=== PATIENT | male | born 1955 | race Caucasian/White ===

== ENCOUNTER 2020-03-24 04:41 | Inpatient (IN) | payer MEDICAID ==
[2020-03-24] VITALS (11 sets, daily range): BP systolic 96–139; BP diastolic 63–103; BMI 31.9
[~2020-03-24] VITALS: Ht 182.9 cm; Wt 106.6 kg
--- NOTE | ~2020-03-24 | HEMODYNAMI ---
PATIENT:STEVEN RIOS MEDICAL RECORD: [id number] : 59 [facility]# [id number] ADMISSION DATE: 03/24/20 Generatedon:03/24/202011:42 Patient name: STEVEN RIOS Patient #: [id number] SSN: [id number] : 1955 Date of study: 03/24/2020 Page: Of Hemodynamic Procedure Report Patient Data Patient Demographics Procedure consent was obtained First Name: STEVEN Gender: Male Last Name: GABRIEL : 1955 Patient #: [id number] Age: 64 year(s) Race: Unknown SSN: [id number] Additional ID: [id number] Contact details [address]: [address] [place] [address] State: [place] City: [place] Zip code: [address] Past Medical History Allergies Allergen Reaction Date Comments Reported Other allergy 03/24/2020 Admission Admission Data Admission Date: 03/24/2020 Admission Time: 6:16 Arrival Date: 03/24/2020 Arrival Time: 0:00 Admit Source: Other Insurance Payor: None Room #: D.E10 [facility] #: [id number] Height (in.): 71.65 BSA: 2.27 (m2) Height (cm.): 182 BMI: 32 (kg/m2) Weight (lbs.): 233.69 Weight (kg.): 106 Lab Results Lab Result Date: 03/24/2020 Lab Result Time: 0:00 Biochemistry Name Units Result Min Max BUN mg/dl 14 --(--*-)-- 7 18 Creatinine mg/dl 1 --(--*-)-- 0.6 1.3 eGFR ml/min 79.99531 *-(----)-- 90 120 NONAFRICAN CBC Name Units Result Min Max Hemoglobin g/dl 15.9 --(--*-)-- 13.5 17.5 Procedure Procedure Types Cath Procedure Diagnostic Procedure [facility] w/Coronaries Sedation Charges Moderate Sedation 40-54 minutes PCI Procedure Coronary Stent Coronary Stent Initial Hemochron ACT Test Procedure Description Procedure Date Procedure Date: 03/24/2020 Procedure Start Time: 10:50 Procedure End Time: 11:39 Procedure Staff Name Function Benson Blanco MD Performing Physician Angelica Valenzuela RT Monitor Bubba Foster RN Nurse Manasa Ramirez RT Scrub Procedure Data Cath Procedure Fluoroscopy Diagnostic fluoroscopy Total fluoroscopy Time: 7.8 time: 7.8 min min Diagnostic fluoroscopy Total fluoroscopy dose: dose: 1019 mGy 1019 mGy Contrast Material Contrast Material Type Amount (ml) Isovue 300 163 Entry Location Entry Primary Successful Side Size Upsize Upsize Entry Closure Succes sful Closure Location (Fr) 1 (Fr) 2 (Fr) Remarks Device Remarks Femoral Right 5 Fr 6 Fr Exoseal artery Short Estimated blood loss: 10 ml Diagnostic catheters Device Type Used For End Catheter Placement MULTIPACK JL 4.0 5Fr Procedure catheter DIAGNOSTIC JL 5 5Fr Procedure catheter ([id number]) MULTIPACK 3DRC 5Fr Procedure catheter DIAGNOSTIC AR1 MOD 5Fr Procedure catheter ([id number]) MULTIPACK Pigtail 5 Fr Ventriculography catheter Procedure Complications No complications Procedure Medications Medication Administration Route Dosage Oxygen etCO2 Nasal cannula 2 l/min Heparin Flush Bag added to field 2 bags (1000units/500ml NS) 0.9% NaCl I.V. 100 ml/hr Lidocaine 2% added to field 20 Fentanyl I.V. 50 mcg Versed I.V. 1 mg Fentanyl I.V. 50 mcg Versed I.V. 1 mg Heparin Bolus I.V. 5000 units Integrilin (Bolus I.V. 9.5 ml 2mg/ml) Integrilin (Bolus I.V. 0.5 ml 2mg/ml) Lopressor I.V. 5 mg Fentanyl I.V. 50 mcg Fentanyl I.V. 50 mcg Heparin Bolus I.V. 2000 units Plavix P.O. 600 mg Hemodynamics Rest BSA: 2.27 (m2) HGB: 15.9 (g/dl) O2 Consumption: Estimated: 296.01 (ml/min) O2 Co nsumption indexed: Estimated:130.4 (ml/min/m) Heart Rate: 105 (bpm) Pressure Samples Time Site Value (mmHg) Purpose Heart Use Rate(bpm) 11:10 LV 126/14,20 Snapshot 107 11:10 AO 136/36(81) Pullback 110 11:10 LV 76/76,17 Pullback 110 Gradients Valve Time Site 1 Site 2 Mean SEP/DFP Peak To Heart Use (mmHg) (sec/min) Peak Rate (mmHg) (bpm) Aortic 11:10 LV AO 0 1 0 110 76/76,17 136/36(81) Calculations Valve P-P Mean Valve Index Valve Source Name Gradient Area Flow (cm2) Aortic 0 0 0 0 Snapshots Pre Cath Intra NCS Post Cath Vital Signs Time Heart Resp SPO2 etCO2 NIBP (mmHg) Rhythm Pain Sedation Rate (ipm) (%) (mmHg) Status Level (bpm) 10:40:52 105 16 96 2.2 138/98(106) NSR (Missing) 10(A) 10:45:22 106 19 92 40.9 136/90(109) NSR (Missing) 10(A) 10:49:51 104 19 94 9.8 132/89(108) NSR (Missing) 10(A) 10:54:15 106 20 92 22.7 133/92(108) NSR (Missing) 9(A) 10:58:39 103 17 96 32.6 132/90(98) NSR (Missing) 9(A) 11:03:03 106 16 95 27.3 126/82(97) NSR (Missing) 9(A) 11:07:29 105 28 95 26.5 117/80(99) NSR (Missing) 9(A) 11:11:50 108 19 95 36.4 132/87(105) NSR (Missing) 9(A) 11:16:14 105 20 96 30.3 137/92(107) NSR (Missing) 9(A) 11:20:42 100 19 96 32.6 129/85(94) NSR (Missing) 9(A) 11:25:08 91 20 94 34.1 122/82(94) NSR (Missing) 9(A) 11:29:30 90 20 96 34.9 126/85(100) NSR (Missing) 9(A) 11:33:57 96 20 94 30.3 130/72(111) NSR (Missing) 9(A) 11:38:23 94 18 95 27.3 123/87(98) NSR (Missing) 10(A) Medications Time Medication Route Dose Verified Delivered Reason Notes Effectiveness by by 10:42:01 Oxygen etCO2 2 Benson Mac Per physician Nasal l/min St Steven Foster RN cannula 10:42:09 Heparin Flush added 2 Benson Bubba used for Bag to bags [facility] Steven Foster RN procedure (1000units/500ml field BLACK NS) 10:42:21 0.9% NaCl I.V. 100 Benson Mac Per physician ml/hr [facility] Steven Foster RN, MD 10:42:29 Lidocaine 2% added 20ml Benson Mac for local to vial St Steven Foster RN anesthetic field BLACK 10:48:46 Fentanyl I.V. 50 Benson Bubba for sedation [facility] Steven Foster RN, MD 10:48:53 Versed I.V. 1 mg Benson Gandhiy for sedation [facility] Steven Foster RN, MD 10:50:45 Fentanyl I.V. 50 Benson Bubba for sedation [facility] Steven Foster RN, MD 10:50:51 Versed I.V. 1 mg Benson Mac for sedation [facility] Steven Foster RN, MD 11:10:29 Heparin Bolus I.V. [address] units [facility] Steven Foster RN anticoagulation 11:16:27 Integrilin I.V. 9.5 Benson Gandhiy for (Bolus 2mg/ml) ml [facility] Steven Foster RN anticoagulation 11:16:34 Integrilin I.V. 0.5 Benson Gandhiy for (Bolus 2mg/ml) ml [facility] Steven Foster RN anticoagulation 11:18:26 Lopressor I.V. 5 mg Benson Mac Per physician [facility] Steven Foster RN 11:18:54 Fentanyl I.V. 50 Benson Gandhiy for sedation [facility] Steven Foster RN 11:22:55 Fentanyl I.V. 50 Benson Gandhiy for sedation [facility] Steven Foster RN 11:30:29 Heparin Bolus I.V. [address] Mac for units [facility] Steven Foster RN anticoagulation 11:35:36 Plavix P.O. 600 Benson Gandhiy for mg [facility] Steven Foster RN antiplatelet therapy Procedure Log Time Note 10:14:08 Arrival Date: 03/24/2020 12:00:00 AM 10:14:22 Admit Source: Other 10:14:24 Insurance Payor : None 10:14:48 Patient Height : 71.65 inches 10:14:52 Patient Weight : 233.69 lbs 10:15:28 Lab Result : Hemoglobin 15.9 g/dl 10:15:28 Lab Result : eGFR NONAFRICAN 79.65143 ml/min 10:15:28 Lab Result : BUN 14 mg/dl 10:15:28 Lab Result : Creatinine 1 mg/dl 10:15:46 Diagnostic Cath Status : Elective 10:19:45 Procedure Status Urgent Heart Cath (IP). 10:19:57 Bubba Foster RN sent for patient. Start room use. 10:19:58 Time tracking: Regular hours (M-F 7:00 - 5:00) 10:20:06 Plan of Care:Hemodynamics will remain stable., Cardiac rhythm will remain stable., Comfort level will be maintained., Respiratory function will remain adequate., Patient/ family verbilizes understanding of procedure., Procedure tolerated without complication., Recovers from procedure without complications.. 10:20:28 Patient received from ED to CCL 3 Alert and oriented. Tansferred to table in Supine position. 10:30:06 H&P Date Dictated: 03/24/2020 Within 30 days and on chart., H&P Addendum completed by physician on day of procedure. (MUST COMPLETE FOR ALL OUTPATIENTS). 10:30:09 Pre-procedure instructions explained to patient. 10:30:40 Signed procedure consent form obtained from patient. 10:30:42 Warm blankets applied, and rachel hugger turned on for patient comfort. 10:30:45 Correct patient and procedure confirmed by team. 10:30:47 ECG and BP/O2 sat monitors applied to patient. 10:30:49 Pre-op teaching completed and patient verbalized understanding. 10:39:22 Vital chart was started 10:42:01 Oxygen 2 l/min etCO2 Nasal cannula was administered by Bubba Foster RN; Per physician; Verbal order read back and verified. 10:42:09 Heparin Flush Bag (1000units/500ml NS) 2 bags added to field was administered by Bubba Foster RN; used for procedure; Verbal order read back and verified. 10:42:21 0.9% NaCl 100 ml/hr I.V. was administered by Bubab Foster RN; Per physician; Verbal order read back and verified. 10:42:29 Lidocaine 2% 20ml vial added to field was administered by Bubba Foster RN; for local anesthetic; Verbal order read back and verified. 10:44:11 Baseline sample Acquired. 10:44:12 Full Disclosure recording started 10:44:19 Family in patients room. 10:44:21 Patient NPO since Midnight. 10:44:33 Patient allergic to Other allergy 10:44:36 Is the patient allergic to Iodine/contrast media? No. 10:44:38 Was the patient premedicated? Yes 10:44:40 Is patient on blood thinner?No 10:44:42 Patient diabetic? Yes. 10:45:23 Previous problem with sedation/anesthesia? No ? 10:45:25 Snore? Yes 10:45:27 Sleep apnea? No 10:45:33 Dentures? No ? 10:45:37 Patient pain scale 2/10 ?. 10:45:45 IV patent on arrival in right forearm with 0.9% NaCl at KVO. 10:46:02 Lab results completed and on chart. 10:46:57 Stress Test: no; N/A ? 10:47:05 Right groin area was prepped with chlora-prep and draped in sterile fashion 10:47:06 Alarms reviewed by R. N. 10:47:07 Sharps counted by scrub and verified by R.N. 10:47:09 Physician paged 10:48:42 Physician arrived 10:48:43 --------ALL STOP TIME OUT------ 10:48:44 Final Timeout: patient, procedure, and site verified with staff and physician. All members of the team are in agreement. 10:48:46 Fentanyl 50 mcg I.V. was administered by Bubba Foster RN; for sedation; Verbal order read back and verified. 10:48:46 Right groin site verified by team. 10:48:51 Fire Safety Assessment: A--An alcohol-based skin anteseptic being used preoperatively., C--Open oxygen or nitrous oxide is being used., D--An ESU, laser, or fiber-optic light is being used. 10:48:53 Versed 1 mg I.V. was administered by Bubba Foster RN; for sedation; Verbal order read back and verified. 10:48:56 Physical assessment completed. ASA score P 2 - A patient with mild systemic disease as per Benson Blanco MD. 10:49:42 2) 60-89 Mildly reduced kidney function, and other findings (as for stage 1) point to kidney disease. 10:49:49 Maximum allowable contrast dose (3.7 X eGFR X 0.75)222 ml. 10:50:02 Sedation plan: IV Moderate Sedation Medication:Versed, Fentanyl 10:50:21 Procedure started. 10:50:31 Use device set Femoral Dx 10:50:32 ACIST Syringe (88601) opened to sterile field. 10:50:32 Bag Decanter (2002S) opened to sterile field. 10:50:33 Medline Cath Pack ([id number]) opened to sterile field. 10:50:34 ACIST Hand Control (68190) opened to sterile field. 10:50:34 ACIST Manifold (18595) opened to sterile field. 10:50:38 DIAGNOSTIC Multipack 5Fr catheter set (SA3238) opened to sterile field. 10:50:39 Tegaderm 4 x 4 (1626W) opened to sterile field. 10:50:41 SHEATH 5FR [place] (IAU578) opened to sterile field. 10:50:41 EMERALD Guide Wire (746-137) opened to sterile field. 10:50:45 Fentanyl 50 mcg I.V. was administered by Bubba Foster RN; for sedation; Verbal order read back and verified. 10:50:47 Local anesthetic to right femoral artery with Lidocaine 2% by Benson Blanco MD.INITIAL ACCESS ONLY 10:50:51 Versed 1 mg I.V. was administered by Bubba Foster RN; for sedation; Verbal order read back and verified. 10:52:11 A 5 Fr sheath was inserted into the Right Femoral artery 10:52:22 A MULTIPACK JL 4.0 5Fr catheter was advanced over the wire and used for Procedure. 10:52:43 Catheter removed. 10:52:57 A DIAGNOSTIC JL 5 5Fr catheter ([id number]) was advanced over the wire and used for Procedure. 10:53:19 LCA angiography performed. 10:55:37 Catheter removed. 10:55:58 A MULTIPACK 3DRC 5Fr catheter was advanced over the wire and used for Procedure. 10:56:50 RCA angiography performed. 10:57:14 Catheter removed. 10:57:46 A DIAGNOSTIC AR1 MOD 5Fr catheter ([id number]) was advanced over the wire and used for Procedure. 10:59:22 RCA angiography performed. 10:59:23 Catheter removed. 10:59:32 A MULTIPACK Pigtail 5 Fr catheter was advanced over the wire and used for Ventriculography. 10:59:36 LV gram done using ESTRELLA 11:00:48 Zero performed for pressure channel P1 11:00:57 Zero performed for pressure channel P1 11:01:08 Zero performed for pressure channel P1 11:01:29 Zero performed for pressure channel P1 11:02:03 Zero performed for pressure channel P1 11:02:41 Zero performed for pressure channel P1 11:05:33 Baseline sample Acquired. 11:05:36 Baseline sample Acquired. 11:05:37 Zero performed for pressure channel P1 11:05:37 Zero performed for pressure channel P2 11:05:37 Zero performed for pressure channel P3 11:05:43 Zero performed for pressure channel P2 11:05:43 Zero performed for pressure channel P1 11:05:43 Zero performed for pressure channel P3 11:07:04 Zero performed for pressure channel P1 11:07:08 Zero performed for pressure channel P1 11:07:15 Zero performed for pressure channel P1 11:07:26 Zero performed for pressure channel P1 11:07:44 Zero performed for pressure channel P1 11:07:54 Zero performed for pressure channel P1 11:08:49 Baseline sample Acquired. 11:08:58 Zero performed for pressure channel P1 11:09:06 Zero performed for pressure channel P1 11:09:43 Zero performed for pressure channel P1 11:10:29 Heparin Bolus 5000 units I.V. was administered by Bubba Foster RN; for anticoagulation; Verbal order read back and verified. 11:11:07 EF : 20 % 11::22 Zero performed for pressure channel P1 11:11:28 Zero performed for pressure channel P1 11:13:22 Catheter removed. 11:14:23 Pre PCI Site: [place] pCirc has 100% stenosis. 11:15:06 Sheath upsized to a 6 Fr Short. 11:15:43 SHEATH 6FR [place] (IGN151) opened to sterile field. 11:15:45 GUIDE 6FR EBU 3.75 catheter ([id number]) opened to sterile field. 11:15:46 INFLATOR [place] BasixCompak (BG2754) opened to sterile field. 11:15:52 BMW 300cm [place] 2 J wire ([id number]) opened to sterile field. 11:16:10 6 Fr EBU3.75 guide catheter was inserted over the wire 11:16:27 Integrilin (Bolus 2mg/ml) 9.5 ml I.V. was administered by Bubba Foster RN; for anticoagulation; Verbal order read back and verified. 11:16:34 Integrilin (Bolus 2mg/ml) 0.5 ml I.V. was administered by Bubba Foster RN; for anticoagulation; Verbal order read back and verified. 11:18:17 Catheter removed. unable to cannulate vessel. 11:18:26 Lopressor 5 mg I.V. was administered by Bubba Foster RN; Per physician; Verbal order read back and verified. 11:18:27 GUIDE 6FR XBLAD 4.0 catheter ([id number]) opened to sterile field. 11:18:51 6 Fr XBLAD4 guide catheter was inserted over the wire 11:18:54 Fentanyl 50 mcg I.V. was administered by Bubba Foster RN; for sedation; Verbal order read back and verified. 11:20:31 Catheter removed. unable to cannulate vessel. 11:21:03 GUIDE 6FR EBU 5.0 catheter ([id number]) opened to sterile field. 11:22:30 BMW wire advanced. 11:22:55 Fentanyl 50 mcg I.V. was administered by Bubba Foster RN; for sedation; Verbal order read back and verified. 11:27:24 Inflate balloon Inflation number: 1 A EUPHORA 2.5 x 15 Balloon ([id number]) was prepped and advanced across the Mid CX 100, then inflated to 0 AURA for 0:04 (min:sec) 0. 11:28:46 Balloon removed over the wire. 11:30:29 Heparin Bolus 2000 units I.V. was administered by Bubba Foster RN; for anticoagulation; Verbal order read back and verified. 11:30:58 Place stent Inflation Number: 2 A INTEGRITY RX 3.0 x 18 stent ([id number]) was prepped and advanced across the Mid CX 100. The stent was deployed at 14 AURA for 0:25 (min:sec) . 11:31:16 Inflation number: 3 The stent balloon was then re-inflated across the Mid CX to 6 AURA for 0:12 (min:sec) . 11:31:36 Inflation number: 4 The stent balloon was then re-inflated across the Mid CX to 6 AURA for 0:13 (min:sec) . 11:32:15 EXOSEAL 6Fr (EX600) opened to sterile field. 11:32:32 Wire removed. 11:32:33 Guide catheter removed. 11:32:51 Sheath removed intact; hemostasis achieved with Exoseal to the Right Femoral artery. 11:32:54 Procedure ended.(Physican Out) 11:34:06 Fluoroscopy time 07.80 minutes. 11:34:19 Flurop Dose total: 1019 11:34:19 Fluoroscopy dose: 1019 mGy 11:34:30 Dose Area Product 6641 mGy/cm. 11:34:34 Contrast amount:Isovue 300 163ml. 11:34:36 Maximum allowable dose exceeded? No. 11:34:37 Sharps counted by scrub and verified by R.N. 11:34:38 Insertion/operative site no bleeding no hematoma. 11:34:42 Post-op/insertion site Right Femoral artery dressed using a 4 x 4 and Tegaderm. 11:35:25 Post-op/insertion site Right Femoral artery dressed using a 4 x 4 and Tegaderm. 11:35:29 Post right femoral artery:stable 11:35:36 Plavix 600 mg P.O. was administered by Bubba Foster RN; for antiplatelet therapy; Verbal order read back and verified. 11:35:36 Post Procedure Pulses reassessed and unchanged 11:35:46 Post-procedure physical assessment completed. ASA score P 3 - A patient with severe systemic disease as per Benson Blanco MD. 11:35:52 Post procedure rhythm: sinus rhythm 11:35:56 Estimated blood loss: 10 ml 11:35:58 Post procedure instruction explained to patient.Patient verbalizes understanding. 11:37:27 Procedure type changed to Cath procedure, Diagnostic procedure, LHC, LHC w/Coronaries, Sedation Charges, Moderate Sedation 40-54 minutes, PCI procedure, Coronary Stent, Coronary Stent Initial, Hemochron ACT Test 11:37:29 Procedure and supply charges have been captured, reviewed, submitted and are correct. 11:38:25 ACT drawn and resulted at 250 seconds. (normal therapeutic range 180-240 seconds). 11:38:38 Procedure Complication : No complications 11:38:42 Vital chart was stopped 11:38:47 [facility] Findings: MVD- PCI performed (see procedure note) 11:39:02 Operative report dictated upon procedure completion. 11:39:06 See physician's report for complete and final results. 11:39:22 Report given to Pre/Post Procedure Room. 11:39:25 Patient transfered to Pre/Post Procedure Room with Stretcher. 11:39:27 Procedure ended. 11:39:27 Full Disclosure recording stopped 11:39:33 End room use (Document Last) 11:40:02 End room use (Document Last) 11:41:27 End room use (Document Last) Intervention Summary Intervention Notes Time ActionType Lesion and Equipment Action# Pressure Duration Attributes Used 11:27:24 Inflate Mid CX EUPHORA 2.5 1 0 00:04 balloon x 15 Balloon ([id number]) 11:30:58 Place stent Mid CX INTEGRITY RX 2 14 00:25 3.0 x 18 stent ([id number]) 11:31:16 Reinflate Mid CX INTEGRITY RX 3 6 00:12 stent 3.0 x 18 balloon stent ([id number]) 11:31:36 Reinflate Mid CX INTEGRITY RX 4 6 00:13 stent 3.0 x 18 balloon stent ([id number]) Device Usage Item Name Manufacture Quantity Catalog Hospital Part Current Minimal Lot# / Number Charge Number Stock Stock Serial# Code ACIST Acist 1 60413 228134 870387 166664 20 Syringe Medical (34429) Systems Inc Bag Decanter Microtek 1 402364 53119 693071 5 () Medical Inc. Medline Cath Medline 1 [id number] 381109 43328 826350 5 Pack ([id number]) ACIST Hand Acist 1 41821 367335 282110 095788 5 Control Medical (73260) Systems Inc ACIST Acist 1 85383 906440 847727 245765 5 Manifold Medical (77705) Systems Inc DIAGNOSTIC Cardinal 1 WP2744 054406 38524 238957 30 ONEPLE 5Fr catheter set (JY6276) Tegaderm 4 x 3M 1 1626W 377432 244177 960948 5 4 (1626W) SHEATH 5FR Terumo 1 TYW692 990717 952492 593758 5 [place] (IKG930) EMERALD Cardinal 1 502-455 259279 671035 406670 5 Guide Wire Health (502-455) MULTIPACK JL Cardinal 1 850653 5 4.0 5Fr Health catheter DIAGNOSTIC Cardinal 1 [id number] 898951 844357 602356 5 JL 5 5Fr Health catheter (260247B) MULTIPACK Cardinal 1 648015 5 3DRC 5Fr Health catheter DIAGNOSTIC Cardinal 1 359813E 319736 641132 799400 15 AR1 MOD 5Fr Health catheter (277713R) MULTIPACK Cardinal 1 947466 5 Pigtail 5 Fr Health catheter SHEATH 6FR Terumo 1 VGD086 333436 609624 958439 40 [place] (EQB397) GUIDE 6FR Medtronic 1 [id number] 054823 75366 023600 1 EBU 3.75 catheter ([id number]) INFLATOR [facility] 1 NQ9218 805054 442012 330162 15 [facility] BasixCompak (FF0822) BMW 300cm [place] 1 [id number] 959162 660140 675071 5 [place] 2 Vascular J wire ([id number]) GUIDE 6FR Cardinal 1 [id number] 066705 688727 304688 3 XBLAD 4.0 Health catheter ([id number]) GUIDE 6FR Medtronic 1 [id number] 149686 13033 720920 0 EBU 5.0 catheter ([id number]) EUPHORA 2.5 Medtronic 1 [id number] 512717 215227 851337 5 x 15 Balloon ([id number]) INTEGRITY RX Medtronic 1 [id number] 226409 469043 045289 5 [id number] 3.0 x 18 stent ([id number]) EXOSEAL 6Fr Cardinal 1 EX600 142068 160442 537156 10 (EX600) Health Signature Audit Julian Stage Time Signature Unsigned Intra-Procedure 03/24/2020 Angelica Valenzuela 11:40:02 AM RT(R) Intra-Procedure 03/24/2020 Bubba Foster RN 11:41:27 AM Intra-Procedure 03/24/2020 Benson Blanco MD 11:42:[address] [address]
--- NOTE | ~2020-03-24 | HEMODYNAMI ---
PATIENT:STEVEN RIOS MEDICAL RECORD: [id number] : 59 [facility] [id number] ADMISSION DATE: 03/24/20 Generatedon:03/27/202011:58 Patient name: STEVEN RIOS Patient #: [id number] SSN: [id number] : 1955 Date of study: 03/27/2020 Page: Of Hemodynamic Procedure Report Patient Data Patient Demographics Procedure consent was obtained First Name: STEVEN Gender: Male Last Name: GABRIEL : 1955 Patient #: [id number] Age: 64 year(s) Race: SSN: [id number] Additional ID: [id number] Contact details Address: [address] [place] [address] State: [place] City: [place] Zip code: [address] Past Medical History Allergies Allergen Reaction Date Comments Reported Other allergy 03/24/2020 Admission Admission Data Admission Date: 03/24/2020 Admission Time: 6:16 Arrival Date: 03/24/2020 Arrival Time: 0:00 Admit Source: Other Insurance Payor: None Room #: D.2113 [facility] #: [id number] Height (in.): 71.65 BSA: 2.27 (m2) Height (cm.): 182 BMI: 32 (kg/m2) Weight (lbs.): 233.69 Weight (kg.): 106 Lab Results Lab Result Date: 03/24/2020 Lab Result Time: 0:00 Biochemistry Name Units Result Min Max BUN mg/dl 14 --(--*-)-- 7 18 Creatinine mg/dl 1 --(--*-)-- 0.6 1.3 eGFR ml/min 79.92327 *-(----)-- 90 120 NONAFRICAN CBC Name Units Result Min Max Hemoglobin g/dl 15.9 --(--*-)-- 13.5 17.5 Procedure Procedure Types Cath Procedure Diagnostic Procedure [facility] w/Coronaries Sedation Charges Moderate Sedation 40-54 minutes PCI Procedure Hemochron ACT Test PTCA PTCA Initial Procedure Description Procedure Date Procedure Date: 03/27/2020 Procedure Start Time: 11:12 Procedure End Time: 11:54 Procedure Staff Name Function Benson Blanco MD Performing Physician Magaly Guardado RT Monitor Kinjal Matt, RN Nurse Alivia Hamlin RT Scrub Procedure Data Cath Procedure Fluoroscopy Diagnostic fluoroscopy Total fluoroscopy Time: time: 15.2 min 15.2 min Diagnostic fluoroscopy Total fluoroscopy dose: dose: 2470 mGy 2470 mGy Contrast Material Contrast Material Type Amount (ml) Isovue 300 113 Entry Location Entry Primary Successful Side Size Upsize Upsize Entry Closure Succes sful Closure Location (Fr) 1 (Fr) 2 (Fr) Remarks Device Remarks Femoral Left 6 Fr Exoseal artery Short Estimated blood loss: 5 ml Diagnostic catheters Device Type Used For End Catheter Placement DIAGNOSTIC JL 5 5Fr Left Coronary catheter ([id number]) Angiography Procedure Complications No complications Procedure Medications Medication Administration Route Dosage Oxygen etCO2 Nasal cannula 2 l/min Heparin Flush Bag added to field 2 bags (1000units/500ml NS) Lidocaine 2% added to field 20 0.9% NaCl I.V. 100 ml/hr Fentanyl I.V. 50 mcg Versed I.V. 1 mg Fentanyl I.V. 50 mcg Versed I.V. 1 mg Heparin Drip (29670ifcpl/250 D5W) Heparin Bolus I.V. 3000 units Versed I.V. 1 mg Versed I.V. 1 mg Fentanyl I.V. 50 mcg Hemodynamics Rest BSA: 2.27 (m2) HGB: 15.9 (g/dl) O2 Consumption: Estimated: 268.52 (ml/min) O2 Co nsumption indexed: Estimated:118.29 (ml/min/m) Heart Rate: 73 (bpm) Snapshots Pre Cath Intra NCS Post Cath Vital Signs Time Heart Resp SPO2 etCO2 NIBP (mmHg) Rhythm Pain Sedation Rate (ipm) (%) (mmHg) Status Level (bpm) 11:06:19 75 26 94 0 85/62(69) NSR 0 (11) 10(A) , No pain 11:10:23 78 17 92 9.7 85/63(71) NSR 0 (11) 10(A) , No pain 11:14:24 77 18 94 25.5 85/66(72) NSR 0 (11) 9(A) , No pain 11:18:28 76 15 86 25.5 84/60(68) NSR 0 (11) 9(A) , No pain 11:22:30 80 15 92 23.2 82/62(73) NSR 0 (11) 9(A) , No pain 11:26:34 80 16 92 25.5 87/55(68) NSR 0 (11) 9(A) , No pain 11:30:35 85 18 92 24.8 91/66(76) NSR 0 (11) 9(A) , No pain 11:34:35 84 18 94 25.5 100/74(87) NSR 0 (11) 9(A) , No pain 11:38:36 83 17 94 24 106/83(91) NSR 0 (11) 9(A) , No pain 11:42:38 86 22 94 18.8 110/86(92) NSR 0 (11) 9(A) , No pain 11:46:44 86 16 92 19.5 111/83(96) NSR 0 (11) 9(A) , No pain 11:50:50 87 19 95 23.2 112/82(100) NSR 0 (11) 9(A) , No pain 11:54:53 86 17 95 24 118/88(96) NSR 0 (11) 9(A) , No pain Medications Time Medication Route Dose Verified Delivered Reason Notes E ffectiveness by by 11:01:48 Oxygen etCO2 2 Kinjal Kinjal for low 02 Nasal l/min Shaka Matt sats cannula RN RN 11:01:56 Heparin Flush added 2 Kinjal Kinjal used for Bag to bags Shaka Matt procedure (1000units/500ml field RN RN NS) 11:02:04 Lidocaine 2% added 20ml Kinjal Benson for local to vial [facility] Steven Matt anesthetic field ZIA BLACK 11:02:18 0.9% NaCl I.V. 100 Kinjal Kinjal Per ml/hr Shaka Matt, physician RN RN 11:08:59 Fentanyl I.V. 50 Kinjal Kinjal for mcg Shaka Matt sedation RN RN 11:09:04 Versed I.V. 1 mg Kinjal Kinjal for Matt, Matt, sedation RN RN 11:09:31 Heparin Drip Kinjal Kinjal Heparin ([id number]/250 Matt, Matt, gtt was D5W) RN RN stopped on floor at 10:50am 11:12:50 Fentanyl I.V. 50 Kinjal Kinjal for mcg Matt, Matt, sedation RN RN 11:12:53 Versed I.V. 1 mg Kinjal Kinjal for Matt, Matt, sedation RN RN 11:36:04 Heparin Bolus I.V. 3000 Kinjal Kinjal verified units Matt, Matt, w RN RN bharath,rn 11:37:59 Versed I.V. 1 mg Kinjal Kinjal for Matt, Matt, sedation RN RN 11:40:22 Versed I.V. 1 mg Kinjal Kinjal for Matt, Matt, sedation RN RN 11:41:44 Fentanyl I.V. 50 Kinjal Kinjal for mcg Matt, Matt, sedation RN driver license agent Log Time Note 10:34:44 Informed consent obtained and on chart 10:34:55 Diagnostic Cath Status : Elective 10:35:05 Patient Weight : 233.69 lbs 10:35:05 Patient Height : 71.65 inches 10:41:31 Procedure Status Urgent Heart Cath (IP). 10:41:33 Kinjal Matt RN sent for patient. Start room use. 10:41:34 Time tracking: Regular hours (M-F 7:00 - 5:00) 10:41:38 Plan of Care:Hemodynamics will remain stable., Cardiac rhythm will remain stable., Comfort level will be maintained., Respiratory function will remain adequate., Patient/ family verbilizes understanding of procedure., Procedure tolerated without complication., Recovers from procedure without complications.. 10:54:47 Patient received from Med II to CCL 2 Alert and oriented. Tansferred to table in Supine position. 10:54:47 Warm blankets applied, and rachel hugger turned on for patient comfort. 10:54:48 Correct patient and procedure confirmed by team. 10:54:48 ECG and BP/O2 sat monitors applied to patient. 10:54:56 Pre-procedure instructions explained to patient. 10:54:56 Pre-op teaching completed and patient verbalized understanding. 10:54:58 Family in waiting room. 10:54:59 Patient NPO since Midnight. 11:01:48 Oxygen 2 l/min etCO2 Nasal cannula was administered by Kinjal Matt RN; for low 02 sats; Verbal order read back and verified. 11:01:56 Heparin Flush Bag (1000units/500ml NS) 2 bags added to field was administered by Kinjal Matt RN; used for procedure; Verbal order read back and verified. 11:02:04 Lidocaine 2% 20ml vial added to field was administered by Benson Blanco MD; for local anesthetic; Verbal order read back and verified. 11:02:18 0.9% NaCl 100 ml/hr I.V. was administered by Kinjal Matt RN; Per physician; Verbal order read back and verified. 11:05:11 Vital chart was started 11:05:12 Baseline sample Acquired. 11:05:22 Rhythm: sinus rhythm 11:05:24 Full Disclosure recording started 11:05:28 H&P Date Dictated: 03/27/2020 Within 30 days and on chart., H&P Addendum completed by physician on day of procedure. (MUST COMPLETE FOR ALL OUTPATIENTS). 11:05:31 Is the patient allergic to Iodine/contrast media? No. 11:05:32 Was the patient premedicated? Yes 11:05:34 Is patient on blood thinner?Yes 11:05:39 ACC The patient was administered the following blood thiners within the last 24 hours: ACCPlavix, ACCHeparin 11:05:41 Patient diabetic? Yes. 11:05:44 Previous problem with sedation/anesthesia? No ? 11:05:46 Snore? Yes 11:06:13 Sleep apnea? No 11:06:14 Deviated septum? No 11:06:14 Opens mouth fully? Yes 11:06:15 Sticks out tongue? Yes 11:06:22 Airway obstruction? No ? 11:06:25 Dentures? No ? 11:06:28 Pre procedure: right dorsailis pedis pulse 2+ Normal; easily identifiable; not easily obliterated 11:06:30 Pre procedure: left dorsailis pedis pulse 2+ Normal; easily identifiable; not easily obliterated 11:06:32 Patient pain scale 0/10 ?. 11:06:37 IV patent on arrival in right forearm with 0.9% NaCl at [facility]. 11:06:39 Lab results completed and on chart. 11:06:51 Left groin area was prepped with chlora-prep and draped in sterile fashion 11:06:52 Alarms reviewed by RMarkie N. 11:06:52 Sharps counted by scrub and verified by R.N. 11:06:54 Physician arrived 11:06:55 --------ALL STOP TIME OUT------ 11:06:56 Final Timeout: patient, procedure, and site verified with staff and physician. All members of the team are in agreement. 11:06:58 Left groin site verified by team. 11:07:01 Fire Safety Assessment: A--An alcohol-based skin anteseptic being used preoperatively., C--Open oxygen or nitrous oxide is being used., D--An ESU, laser, or fiber-optic light is being used. 11:07:06 Physical assessment completed. ASA score P 2 - A patient with mild systemic disease as per Benson Blanco MD. 11:08:59 Fentanyl 50 mcg I.V. was administered by Kinjal Matt RN; for sedation; Verbal order read back and verified. 11:09:04 Versed 1 mg I.V. was administered by Kinjal Matt RN; for sedation; Verbal order read back and verified. 11:09:31 Heparin Drip (46578vgqli/250 D5W) was administered by Kinjal Matt RN; ; Heparin gtt was stopped on floor at 10:50am Verbal order read back and verified. 11:11:18 2) 60-89 Mildly reduced kidney function, and other findings (as for stage 1) point to kidney disease. 11:11:44 Maximum allowable contrast dose (3.7 X eGFR X 0.75)180 ml. 11:11:47 Sedation plan: IV Moderate Sedation Medication:Versed, Fentanyl 11:11:51 Use device set Femoral Dx 11:11:53 ACIST Syringe (83048) opened to sterile field. 11:11:53 Bag Decanter (2002) opened to sterile field. 11:11:54 Medline Cath Pack ([id number]) opened to sterile field. 11:11:55 ACIST Hand Control (77395) opened to sterile field. 11:11:56 ACIST Manifold (04946) opened to sterile field. 11:11:57 EMERALD Guide Wire (502-768) opened to sterile field. 11:12:04 SHEATH 6FR [place] (VXO296) opened to sterile field. 11:12:15 Procedure started. 11:12:22 Local anesthetic to left femerol artery with Lidocaine 2% by Benson Blanco MD.INITIAL ACCESS ONLY 11:12:34 A 6 Fr Short sheath was inserted into the Left Femoral artery 11:12:50 Fentanyl 50 mcg I.V. was administered by Kinjal Matt RN; for sedation; Verbal order read back and verified. 11:12:53 Versed 1 mg I.V. was administered by Kinjal Matt RN; for sedation; Verbal order read back and verified. 11:12:54 INFLATOR Merit BasixCompak (BN0159) opened to sterile field. 11:13:00 BMW 300cm [place] 2 J wire ([id number]) opened to sterile field. 11:14:09 GUIDE 6FR AR 2.0 catheter (YJ1VK59) opened to sterile field. 11:14:42 6 Fr ar 2 guide catheter was inserted over the wire 11:16:04 bmw wire advanced. 11:18:45 Wire advanced across lesion. 11:19:09 ACC Pre-intervention MEI Flow is 1. 11:22:13 Inflate balloon Inflation number: 1 A EUPHORA 3.0 x 15 Balloon ([id number]) was prepped and advanced across the Mid RCA 90, then inflated to 14 AURA for 0:10 (min:sec) 0. 11:22:48 Inflation number: 2 The EUPHORA 3.0 x 15 Balloon ([id number]) was reinflated across the Mid RCA 0, to 14 AURA for 0:30 (min:sec) . 11:23:27 Balloon removed over the wire. 11:34:38 GUIDE 6FR AR 1.0 SH catheter ([id number]) opened to sterile field. 11:35:01 Wire removed. 11:35:02 Guide catheter removed. 11:35:10 6 Fr ar 1 sh guide catheter was inserted over the wire 11:35:19 bmw wire advanced. 11:36:04 Heparin Bolus 3000 units I.V. was administered by Kinjal Matt RN; ; verified w zia sinha Verbal order read back and verified. 11:37:59 Versed 1 mg I.V. was administered by Kinjal Matt RN; for sedation; Verbal order read back and verified. 11:38:00 The INTEGRITY RX 3.5 x 18 stent ([id number]) was advanced then removed because of failure to cross lesion 11:40:22 Versed 1 mg I.V. was administered by Kinjal Matt RN; for sedation; Verbal order read back and verified. 11:41:44 Fentanyl 50 mcg I.V. was administered by Kinjal Matt RN; for sedation; Verbal order read back and verified. 11:42:29 BMW 300cm [place] 2 J wire ([id number]) opened to sterile field. 11:42:47 Wire removed. 11:43:01 bmw wire advanced. 11:45:58 The EMERGE OTW 3.0 x 20 balloon ([id number]) was advanced and then removed because in body, not inflated 11:47:41 Wire removed. 11:47:45 Guide catheter removed. 11:47:49 A DIAGNOSTIC JL 5 5Fr catheter ([id number]) was advanced over the wire and used for Left Coronary Angiography. 11:48:20 LCA angiography performed. 11:48:22 Injector settings: Ml/sec: 3, Volume: 6, 11:48:27 Catheter removed. 11:48:39 EXOSEAL 6Fr (EX600) opened to sterile field. 11:50:23 Sheath removed intact; hemostasis achieved with Exoseal to the Left Femoral artery. 11:50:25 Procedure ended.(Physican Out) 11:50:46 Fluoroscopy time 15.20 minutes. 11:50:51 Fluoroscopy dose: 2470 mGy 11:50:51 Flurop Dose total: 2470 11:50:57 Dose Area Product 351504 mGy/cm. 11:52:03 Contrast amount:Isovue 300 113ml. 11:52:58 Maximum allowable dose exceeded? No. 11:52:59 Sharps counted by scrub and verified by R.N. 11:53:01 Insertion/operative site no bleeding no hematoma. 11:53:04 Post-op/insertion site Left Femoral artery dressed using a 4 x 4 and Tegaderm. 11:53:05 Post Procedure Pulses reassessed and unchanged 11:53:08 Post procedure rhythm: unchanged. 11:53:12 Estimated blood loss: 5 ml 11:53:13 Post procedure instruction explained to patient.Patient verbalizes understanding. 11:53:13 Patient needs reinforcement of post procedure teaching. 11:54:15 Procedure type changed to Cath procedure, Diagnostic procedure, LHC, [facility] w/Coronaries, Sedation Charges, Moderate Sedation 40-54 minutes, PCI procedure, Hemochron ACT Test, PTCA, PTCA Initial 11:54:16 Procedure and supply charges have been captured, reviewed, submitted and are correct. 11:54:18 ACT drawn and resulted at 168 seconds. (normal therapeutic range 180-240 seconds). 11:54:21 Procedure Complication : No complications 11:54:27 Vital chart was stopped 11:54:29 [facility] Findings: MVD- PCI performed (see procedure note) 11:54:30 Operative report dictated upon procedure completion. 11:54:31 See physician's report for complete and final results. 11:54:34 Report given to [facility]. 11:54:36 Patient transfered to [facility] with Stretcher. 11:54:37 Procedure ended. 11:54:37 Full Disclosure recording stopped 11:54:46 ACC-PCI Only Patient was given prescriptions, or instructed by Benson Blanco MD to start/continue the following medications upon discharge: Plavix 11:54:47 End room use (Document Last) 11:57:18 BMW 300cm [place] 2 J wire ([id number]) opened to sterile field. 11:57:59 SHEATH 5FR [place] (OMS093) opened to sterile field. Intervention Summary Intervention Notes Time ActionType Lesion and Equipment Action# Pressure Duration Attributes Used 11:22:13 Inflate Mid RCA EUPHORA 3.0 1 14 00:10 balloon x 15 Balloon ([id number]) 11:22:48 Reinflate Mid RCA EUPHORA 3.0 2 14 00:30 balloon x 15 Balloon ([id number]) 11:38:00 Discard INTEGRITY RX Stent 3.5 x 18 stent ([id number]) 11:45:58 Discard EMERGE OTW Balloon 3.0 x 20 balloon ([id number]) Device Usage Item Name Manufacture Quantity Catalog Number Hospital Part Current Mini mal Lot# / Charge Number Stock Stock Serial# Code ACIST Acist 1 23411 600361 303182 817761 20 Syringe Medical (87888) Systems Inc Bag Decanter Microtek 1 093172 64367 833517 5 () Medical Inc. Medline Cath Medline 1 [id number] 870365 78537 890423 5 Pack ([id number]) ACIST Hand Acist 1 95323 651018 939685 493846 5 Control Medical (50569) Systems Inc ACIST Acist 1 86802 076804 331002 608030 5 Manifold Medical (15914) Systems Inc EMERALD Cardinal 1 502-455 664087 707431 365200 5 Guide Wire Health (502-455) SHEATH 6FR Terumo 1 OJN153 097837 758840 823778 40 [place] (MNB358) INFLATOR [facility] 1 MK6803 940124 389737 261837 15 [facility] BasixCompak (JI8703) BMW 300cm [place] 3 [id number] 915951 973212 999092 5 [place] 2 Vascular J wire (5669653S) GUIDE 6FR AR Medtronic 1 KO6JW52 581272 63305 886502 1 2.0 catheter (NT3LD02) EUPHORA 3.0 Medtronic 1 [id number] 370253 740565 596967 5 [id number] x 15 Balloon ([id number]) GUIDE 6FR AR Medtronic 1 [id number] 507701 92987 731484 1 1.0 SH catheter ([id number]) DIAGNOSTIC Cardinal 1 497824B 998132 139862 261200 5 JL 5 5Fr Health catheter (327278X) EMERGE OTW [place] 1 [id number] 294746 859035 527780 5 [id number] 3.0 x 20 Scientific balloon ([id number]) EXOSEAL 6Fr Cardinal 1 EX600 473123 429379 959048 10 (EX600) Health INTEGRITY RX Medtronic 1 [id number] 908254 437689 238351 5 [id number] 3.5 x 18 stent ([id number]) SHEATH 5FR Terumo 1 HYM376 819743 269927 815332 5 [place] (OFT240) Signature Audit [place] Stage Time Signature Unsigned Intra-Procedure 03/27/2020 Magaly Guardado 11:57:18 AM RT(R) Intra-Procedure 03/27/2020 Kinjal Matt, 11:57:59 AM RN Intra-Procedure 03/27/2020 Benson Cook 11:58:15 AM Steven BLACK Signatures Performing Physician : Signature : Benson Blanco MD Date : Time : Monitor : Magaly Guardado RT Signature : Date : Time : Nurse : Kinjal Matt, Signature : RN Date : Time : [place] [address] [place] [address]
[2020-03-24] MEDS ORDERED: GABAPENTIN100 MG PO (04:47)
[2020-03-24] MEDS ORDERED: BAYER CHEWABLE81 MG PO (04:47)
[2020-03-24] MEDS ORDERED: PROCARDIA10 MG PO (04:47)
[2020-03-24] MEDS ORDERED: CENTRUM MEN'S1 EACH PO (04:48)
[2020-03-24] MEDS ORDERED: LISINOPRIL40 MG PO (04:48)
[2020-03-24] MEDS ORDERED: SUPER B COMPLE1 EAC1 PO (04:49)
[2020-03-24 05:28] LABS: CKMB 297.8 U/L (0.0-3.6)
[2020-03-24 05:38] LABS: CREATINE KINASE 1705 UL (21-232)
[2020-03-24 05:39] LABS: TROPONIN-I 29.426 ng/mL (0.000-0.060)
[2020-03-24 06:39] LABS: HEMATOCRIT 48.8 % (42.0-54.0); HEMOGLOBIN 15.9 g/dL (13.5-17.5); MCH 28.3 pg (26.0-34.0); MCHC 32.6 g/dL (31.0-37.0); MEAN PLATELET VOLUME 9.2 fL (7.4-10.4); PLATELET COUNT 286 10x3/uL (130-400); RBC 5.61 10x6/uL (4.20-6.10); RDW 14.7 % (11.5-14.5); WBC 21.1 10x3/uL (4.8-10.8)
[2020-03-24 06:46] LABS: APTT 37.4 SECONDS (22.8-39.4); CALC OSMOLALITY 283 mosm/kg (275-300); CALCIUM 9.4 mg/dL (8.5-10.1); CARBON DIOXIDE 24.5 mmol/L (21.0-32.0); CHLORIDE - SERUM 101 mmol/L (98-107); GLUCOSE 170 mg/dL (74-106); INR 1.07 (0.85-1.17); POTASSIUM - SERUM 4.4 mmol/L (3.5-5.1); PROTIME 13.8 SECONDS (11.6-15.0); SODIUM 140 mmol/L (136-145); UREA NITROGEN 14 mg/dL (7-18); eGFR NON AFRICAN AMERICAN 80 mL/min (90-120)
[2020-03-24 06:52] LABS: ALBUMIN 3.8 g/dL (3.4-5.0); ALKALINE PHOSPHATASE 78 U/L (30-120); ALT (SGPT) 46 U/L (10-68); BILIRUBIN - TOTAL 0.81 mg/dL (0.2-1.3); MAGNESIUM - SERUM 1.8 mg/dL (1.8-2.4); PROTEIN - SERUM 7.6 g/dL (6.4-8.2)
[2020-03-24 09:03] LABS: CHOL - HDL RATIO 5.8 ratio (2.3-4.9); LDL-HDL RATIO 3.2 ratio (1.5-3.5)
--- NOTE | 2020-03-24 09:12 | NUR ---
CATHLAB CONSENT AND BLOOD CONSENT FORMS SIGNED.
--- NOTE | 2020-03-24 10:15 | NUR ---
RADIOLOGY AT PTS BEDSIDE, DIRECTOR OF SUPPLY CHAIN AT PTS BEDSIDE AT THIS TIME.
--- NOTE | 2020-03-24 10:20 | NUR ---
COVID SWAB TAKEN TO LAB.
--- NOTE | 2020-03-24 11:55 | NUR ---
PT ARRIVED BY STRETCHER. PLACED ON MONITORS. ASSESSMENT COMPLETED. VSS AT THIS TIME. CALL LIGHT WITHIN REACH. FAMILY AT BEDSIDE.
--- NOTE | 2020-03-24 12:10 | NUR ---
PT RESTING COMFORTABLY. VSS. CALL LIGHT WITHIN REACH. RIGHT GROIN DRESSING C/D/I. NO S/S OF HEMATOMA NOTED. RIGHT PEDAL PULSE PALPABLE. RUDY GARCIA ROUNDING ON PT AT THIS TIME.
--- NOTE | 2020-03-24 12:40 | NUR ---
RIGHT GROIN DRESSING C/D/I. NO S/S OF HEMATOMA NOTED. CALL LIGHT WITHIN REACH. VSS AT THIS TIME. DR. PRICE AT BEDSIDE AND UPDATED ON PT'S STATUS. HE SPOKE WITH PT AND PT'S AND UPDATED THEM ON PLAN OF CARE.
--- NOTE | 2020-03-24 13:00 | NUR ---
RIGHT GROIN DRESSING C/D/I. NO S/S OF HEMATOMA NOTED. DENIES NAUSEA. TOLERATING SIPS OF WATER.
[2020-03-24 13:16] LABS: ANISOCYTOSIS OCC; EOSINOPHILS 1 % (0-7); LYMPHOCYTES 17 % (15-50); MONOCYTES 12 % (2-11); NEUTROPHILS 67 % (40-80); PLATELET ESTIMATE NORMAL
--- NOTE | 2020-03-24 13:30 | NUR ---
HEPARIN GTT STARTED TO RIGHT FA PIV AT 900 UNITS/HR PER MD ORDERS.
--- NOTE | 2020-03-24 14:00 | NUR ---
RIGHT GROIN DRESSING C/D/I. NO S/S OF HEMATOMA NOTED. CALL LIGHT WITHIN REACH. VSS AT THIS TIME.
--- NOTE | 2020-03-24 14:50 | NUR ---
RIGHT GROIN DRESSING C/D/I. NO S/S OF HEMATOMA NOTED. HEAD OF BED INC TO 30. TOLERATED WELL. SET UP WITH SANDWICH TRAY AND DRINK.
--- NOTE | 2020-03-24 16:00 | NUR ---
RIGHT GROIN DRESSING C/D/I. NO S/S OF HEMATOMA NOTED. VSS AT THIS TIME. REPORT CALLED TO AMY SAMUEL ON MED 2. PT'S AT BEDSIDE AND UPDATED ON ROOM NUMBER.
--- NOTE | 2020-03-24 16:31 | NUR ---
PT BROUGHT TO ROOM/WC FROM UX DEVELOPER--AWAKE, ALERT, ORINTED. DENIES ANY NEEDS AT THIS TIME. NO DISTRESS NOTED.
--- NOTE | 2020-03-24 19:40 | NUR ---
RECEIVED BEDSIDE REPORT. ROUNDING COMPLETE. PATIENT IS ALERT AND ORIENTED, RESTING COMFORTABLY IN BED. RESPIRATIONS ARE EVEN AND UNLABORED. NO S/S OF DISTRESS. NO C/O PAIN. CALL LIGHT WITHIN REACH. WILL CPOC.
[2020-03-25 05:00] VITALS: BP 97/65
--- NOTE | 2020-03-25 07:00 | NUR ---
RECEIVED REPORT. ASSUMED CARE OF PATIENT. CALL LIGHT WITHIN REACH. PATIENT RESTING WITH EYES CLOSED. SR ON TELEMETRY, RATE OF 94. HEPARIN DRIP INFUSING AT SET RATE OF 9. BEDSIDE SHIFT REPORT COMPLETE, WHITE BOARD UPDATED. NO DISTRESS.
--- NOTE | 2020-03-25 08:54 | NUR ---
AHA DIET ORDER PLACED AND AM MEAL TRAY ORDERED. PATIENT IS NOT NPO AT THIS TIME.
[2020-03-25 10:53] VITALS: BP 96/58
--- NOTE | 2020-03-25 11:49 | NUR ---
FSBS 224. 4 UNITS HUMALOG ADMINISTERED PER SLIDING SCALE.
[2020-03-25 12:03] LABS: BASOPHILS 0.2 % (0-2); EOSINOPHILS 0.2 % (0-7); HEMATOCRIT 42.4 % (42.0-54.0); IMMATURE GRANULOCYTES 0.5 % (0-5); LYMPHOCYTES 22.1 % (15-50); MCH 28.9 pg (26.0-34.0); MCV 87.4 fL (80.0-100.0); MEAN PLATELET VOLUME 9.5 fL (7.4-10.4); MONOCYTES 11.5 % (2-11); NEUTROPHILS 65.5 % (40-80); PLATELET COUNT 233 10x3/uL (130-400); RBC 4.85 10x6/uL (4.20-6.10); RDW 14.6 % (11.5-14.5); WBC 16.5 10x3/uL (4.8-10.8)
[2020-03-25 12:13] LABS: ALBUMIN 3.3 g/dL (3.4-5.0); ANION GAP 15.7 mmol/L (8-16); BILIRUBIN - TOTAL 0.88 mg/dL (0.2-1.3); CALCIUM 8.8 mg/dL (8.5-10.1); CARBON DIOXIDE 24.4 mmol/L (21.0-32.0); POTASSIUM - SERUM 4.1 mmol/L (3.5-5.1); PROTEIN - SERUM 6.8 g/dL (6.4-8.2)
[2020-03-25 12:16] LABS: CREATININE - SERUM 1.3 mg/dL (0.6-1.3)
[2020-03-25 15:17] VITALS: Ht 182.9 cm; Wt 106.6 kg
--- NOTE | 2020-03-25 17:00 | NUR ---
FSBS 139. NO INSULIN PER SLIDING SCALE.
--- NOTE | 2020-03-25 19:51 | NUR ---
RECIEVED UP IN BED WITH EYES OPEN AND TV ON.ALERT AND ORIENTED X4. UP AD SEVEN. IV TO RT FA WITH HEPRIN INFUSING AT 9CC/HR CONT.. NO PROTOCOL. BLOOD SUGARS Q 6 HR. DENIES ANY NEEDS AT THIS TIME.
[2020-03-25 20:30] VITALS: BP 93/58
[2020-03-26 00:30] VITALS: BP 96/60
[2020-03-26 04:30] VITALS: BP 88/55
--- NOTE | 2020-03-26 07:00 | NUR ---
RECEIVED REPORT. ASSUMED CARE OF PATIENT. PATIENT RESTING IN BED WITH EYES OPEN, ATTENTION TO CELLPHONE. CONTINUES WITH HEPARIN DRIP INFUSING AT 9 UNITS/HR. CALL LIGHT WITHIN REACH. BEDSIDE SHIFT REPORT COMPLETE, WHITE BOARD UPDATED. NO DISTRESS.
[2020-03-26 07:38] LABS: ANION GAP 16.2 mmol/L (8-16); CALCIUM 8.7 mg/dL (8.5-10.1); CARBON DIOXIDE 22.7 mmol/L (21.0-32.0); CREATININE - SERUM 1.2 mg/dL (0.6-1.3); POTASSIUM - SERUM 3.9 mmol/L (3.5-5.1)
[2020-03-26 07:58] LABS: BASOPHILS 0.3 % (0-2); EOSINOPHILS 0.5 % (0-7); HEMATOCRIT 39.6 % (42.0-54.0); HEMOGLOBIN 13.2 g/dL (13.5-17.5); IMMATURE GRANULOCYTES 0.5 % (0-5); MCHC 33.3 g/dL (31.0-37.0); MEAN PLATELET VOLUME 9.6 fL (7.4-10.4); MONOCYTES 10.6 % (2-11); NEUTROPHILS 65.1 % (40-80); PLATELET COUNT 256 10x3/uL (130-400); RBC 4.55 10x6/uL (4.20-6.10); RDW 14.7 % (11.5-14.5); WBC 15.1 10x3/uL (4.8-10.8)
[2020-03-26 09:24] VITALS: BP 109/62
--- NOTE | 2020-03-26 10:00 | NUR ---
BRUISE TO RIGHT GROIN, RIGHT UPPER ANTERIOR THIGH OUTLINED WITH BLACK MARKER TO EVALUATE INCREASE IN BRUISE SIZE. WILL MONITOR.
--- NOTE | 2020-03-26 11:54 | NUR ---
FSBS 205. 4 UNITS HUMALOG ADMINISTERED PER SLIDING SCALE.
[2020-03-26 12:46] VITALS: BP 99/52
--- NOTE | 2020-03-26 14:30 | NUR ---
PATIENT WITH AT BEDSIDE. NO DISTRESS. CALL LIGHT WITHIN REACH. DENIES NEEDS AT THIS TIME.
--- NOTE | 2020-03-26 16:28 | NUR ---
FSBS 150. NO INSULIN PER SLIDING SCALE.
[2020-03-26 17:30] VITALS: BP 88/60
--- NOTE | 2020-03-26 18:38 | NUR ---
BRUISE HAS NOT CROSSED OUTLINED BORDER THAT WAS PLACED THIS AM. PATIENT REMAINS AT BEDSIDE. CALL LIGHT WITHIN REACH. NO DISTRESS. CONTINUES ON HEPARIN AT 9 UNITS/MIN.
[2020-03-26 20:00] VITALS: BP 92/61
--- NOTE | 2020-03-26 21:30 | NUR ---
INITIAL ROUNDS COMPLETED AT 1915 HRS. PT AMBULATING HALLS WITH SPOUSE. GAIT EVEN AND STEADY. ASSESSMENT COMPLETED AT 2015 HRS. VSS. SR PER CM HR 81. ALERT AND ORIENTED TO PERSON, PLACE AND TIME. JOYA. IV TO RFA WITH HEPARIN INFUSING AT 900U/HR. IV PATENT. LUNGS ESSENTIALLY CTA. ABD SOFT EITH ACTIVE BS. R GROIN SOFT. BRUISE NOTED BELOW CATH SITE. PALPABLE PERIPHERAL PULSES. BP 92/61 SO PM LISINOPRIL HELD. PT CURRENTLY WATCHING TV. NO DISTRESS NOTED. SR UP X1, CALL LIGHT WITHIN REACH AND SPOUSE AT BEDSIDE.
[2020-03-27] VITALS: BP 88/53
--- NOTE | 2020-03-27 00:07 | NUR ---
FSBS 143. NO COVERAGE NEEDED. NPO FOR POSSIBLE HEART CATH IN AM. PT STATES UNDERSTANDING. AT BEDSIDE.
--- NOTE | 2020-03-27 01:51 | NUR ---
PT AWAKE, DENIES ANY DISCOMFORT. CALL LIGHT WITHIN REACH.
[2020-03-27 04:00] VITALS: BP 93/59
--- NOTE | 2020-03-27 04:04 | NUR ---
PT RESTING WITH EYES CLOSED. RESP EVEN AND REGULAR. CALL LIGHT WITHIN REACH.
--- NOTE | 2020-03-27 06:26 | NUR ---
AM FSBS 155. NO COVERAGE PT NPO. L GROIN CLIPPED. PT INSTRUCTED ON USAE OF HIBICLENS WIPES. STATED UNDERSTANDING. NEEDS MET; WILL CONTINUE TO MONITOR.
[2020-03-27 06:43] LABS: BASOPHILS 0.3 % (0-2); EOSINOPHILS 0.8 % (0-7); HEMATOCRIT 37.4 % (42.0-54.0); HEMOGLOBIN 12.4 g/dL (13.5-17.5); IMMATURE GRANULOCYTES 0.5 % (0-5); LYMPHOCYTES 24.9 % (15-50); MCH 28.8 pg (26.0-34.0); MCHC 33.2 g/dL (31.0-37.0); MCV 86.8 fL (80.0-100.0); MEAN PLATELET VOLUME 9.7 fL (7.4-10.4); MONOCYTES 11.6 % (2-11); NEUTROPHILS 61.9 % (40-80); PLATELET COUNT 250 10x3/uL (130-400); RBC 4.31 10x6/uL (4.20-6.10); RDW 14.4 % (11.5-14.5); WBC 13.1 10x3/uL (4.8-10.8)
[2020-03-27 06:44] LABS: ANION GAP 14.3 mmol/L (8-16); CALCIUM 8.8 mg/dL (8.5-10.1); CARBON DIOXIDE 24.6 mmol/L (21.0-32.0); CREATININE - SERUM 1.2 mg/dL (0.6-1.3); POTASSIUM - SERUM 3.9 mmol/L (3.5-5.1)
--- NOTE | 2020-03-27 09:31 | HP ---
PATIENT: STEVEN RIOS MEDICAL RECORD: [id number] ACCOUNT: [id number] LOCATION:[address] : [birth year] ADMISSION DATE: 03/24/20 PCP: No PCP HISTORY AND PHYSICAL EXAMINATION HISTORY OF PRESENT ILLNESS: A 64-year-old gentleman with no known history of coronary artery disease, has a history of hypertension, symptomology began 3 days prior to admission, been having intermittent chest pain, described as a burning, radiating to the left arm. This is with exertion, had onset of rest symptomology on , presented to his local ER, was found to have elevated troponin consistent with NSTEMI. He was referred here for further evaluation. PAST MEDICAL HISTORY: Includes; 1. History of hypertension. 2. Peripheral neuropathy. ALLERGIES: None known. MEDICATIONS: Typically include nifedipine 30 mg p.o. every day, lisinopril 40 mg p.o. every day, Neurontin 120 every day, aspirin 81 every day. SOCIAL HISTORY: Nonsmoker, nondrinker. Easily takes care of all his ADLs. No set exercise program. REVIEW OF SYSTEMS: The patient reports easy bruising but reports no swollen glands. The patient reports no fever, no night sweats, no significant weight gain, no significant weight loss. No significant exercise tolerance. The patient reports no dry eyes, no irritation, no vision change. Patient reports no difficulty hearing and no ear pain. Patient reports no frequent nose bleeds or nose and sinus problems. Patient reports on arm pain on exertion. No shortness of breath while lying down. No history of heart murmur. Patient reports no cough, no wheezing or coughing up blood. Patient reports no abdominal pain, no vomiting. Normal appetite. No diarrhea and not vomiting blood. No nausea and no constipation. Patient reports no incontinence. No difficulty urinating. No hematuria. No increased frequency. Patient reports no muscle aches. No weakness, no arthralgias, no back pain. No swelling of the extremities. Patient reports no abnormal mole, no jaundice, no rashes. Reports no loss of consciousness. No weakness and no numbness. No seizures, dizziness, or headaches. The patient reports no depression, no sleep disturbance, feeling safe in a relationship and no alcohol abuse. Patient reports on fatigue. Reports no runny nose or sinus pressure. No itching, no hives, and no frequent sneezing. PHYSICAL EXAMINATION: GENERAL: No acute distress, appears stated age. VITAL SIGNS: Blood pressure 128/85, pulse 97, regular. HEENT: Normocephalic, atraumatic. NECK: No JVD or bruit. HEART: Regular. A II/ systolic ejection murmur. LUNGS: Good air excursion. ABDOMEN: Soft, nontender. EXTREMITIES: Pulses well preserved, 2+ with no edema. DIAGNOSTIC DATA: EKG showed nonspecific ST-T changes laterally. HISTORY AND PHYSICAL [id number] STEVEN RIOS IMPRESSION: Non-ST elevation myocardial infarction. PLAN: For angiography, intervention based on the above. TRANSINT:[id number] Voice Confirmation ID: [id number] DOCUMENT ID: [id number] LM PRICE MD at 0931 CC: [id number] DICTATION DATE: 03/24/20 1001 STATUARY PAINTER: 03/24/20 1239 ADM IN [place] [id number] [place] [address]
--- NOTE | 2020-03-27 09:31 | OP ---
PATIENT NAME: STEVEN RIOS MEDICAL RECORD: [id number] :59 LOCATION:D.M2 D.2113 ADMISSION DATE:03/24/20 SURGEON: LM PRICE MD DATE OF OPERATION: 03/24/2020 PROCEDURE: Left heart catheterization, selective coronary angiography, a right femoral artery approach. CATHETERS: A 5-Armenian sheath, 5/4 left and right Eliazar, 5/4 pig. The procedure was well tolerated. We proceeded to do a PTCA stenting of the circumflex. FINDINGS: Left ventriculography in 30-degree ESTRELLA view shows global hypokinesis with reduced EF, estimated at 20% to 25%. CORONARY ANATOMY: LEFT MAIN: Left main is free of disease. LAD: Has luminal irregularity, no focal stenosis. CIRCUMFLEX: Circumflex totally occluded. RIGHT CORONARY ARTERY: Dominant artery, gives rise to PDA. This has an 80% and 90% stenosis with marked thrombus burden. IMPRESSION: Intervention of the circuit in right staged fashion. A 5-Armenian sheath was exchanged for a 6-Armenian sheath. We were finally able to get a 5 curve XB LAD into the coronary of the left ostium. This is followed by 300 cm wire, BMW wire crossed the totally occluded circumflex down this portion of vessel. We then used a 2.0 balloon up and down the circumflex. This actually restored MEI flow from 0 to 3 with still residual thrombus at the area of total stenosis at the initial part of the procedure. We then stented with a 3.0 x 50 mm Integrity nondrug eluting stent up to 14 atmosphere. Final angiography shows excellent resolution totally occluded 100% stenosis of circumflex. Flow improved from 0 to 3, good runoff in the distal vasculature. Planned intervention of the right after anticoagulation over the weekend. TRANSINT:[id number] Voice Confirmation ID: [id number] DOCUMENT ID: [id number] LM PRICE MD at 0931 CC: [id number] DICTATION DATE: 03/24/20 1141 DIE CASTING MACHINE SETTER: 03/24/202058 ADM IN [facility] [address] [place] [address]
[2020-03-27 10:23] VITALS: BP 93/61
--- NOTE | 2020-03-27 11:21 | NUR ---
1100-PT TOOK TO PRODUCT DEVELOPMENT ENGINEER FOR HEART CATH
[2020-03-27] MEDS ORDERED: PLAVIX75 MG PO (12:24)
[2020-03-27] MEDS ORDERED: LIPITOR20 MG PO (12:24)
[2020-03-27] MEDS ORDERED: COREG6.25 MG PO (12:25)
[2020-03-27] MEDS ORDERED: ALDACTONE25 MG PO (12:25)
[2020-03-27] MEDS ORDERED: PROCARDIA XL PO (12:26)
--- NOTE | 2020-03-27 16:04 | NUR ---
0850-AM PO MEDS ADMINISTERED AT THIS TIME, ALL B/P MEDS HELD DUE TO LOW B/P.
--- NOTE | 2020-03-27 16:04 | NUR ---
1220-PT BACK TO ROOM FROM DRAINAGE DESIGN COORDINATOR AT THIS TIME, ALL PULSES WNL, INCISION TO LEFT GROIN HAS SMALL CLEAN/DRY DRESSING IN PLACE. NO DISTRESS NOTED. MOF AT BEDSIDE INFORMED PT MUST LAY FLAT UNTIL 1530 W/UNDERSTANDING STATED.
--- NOTE | 2020-03-27 16:06 | NUR ---
PT IN RESTROOM, URINATING W/O PROBLEM, WILL READY FOR DC HOME, PT AND MOF INFORMED.
--- NOTE | 2020-03-27 16:34 | NUR ---
PT UP IN ROOM, NO DISTRESS NOTED. DC PAPERWORK VERBALLY EXPLAINED AND GIVEN TO PT--IV TO RT FA REMOVED, CATH INTACTED, BANDAGE APPLIED. PT IS DRESSED AND READY FOR DC. DENIES ANY C/O. MOF AT BEDSIDE.
--- NOTE | 2020-03-27 17:10 | NUR ---
PT EXITED HOSPITAL IN GOOD STABLE CONDITION/WHEELCHAIR W/ALL PERSONAL BELONGINGS. W/MOF DRIVING.
--- NOTE | 2020-03-28 15:52 | OP ---
PATIENT NAME: STEVEN RIOS MEDICAL RECORD: [id number] :57 LOCATION:D.M2 D.2113 ADMISSION DATE:03/24/20 SURGEON: LM PRICE MD DATE OF OPERATION: 03/27/2020 PROCEDURE: PTCA stent. DESCRIPTION OF PROCEDURE: After long 6-Latvian sheath placed in the left femoral artery, we were able to place an AR2 guiding catheter into the right. Repeat films were prepared to probably show spontaneous dissection. We were able to place a wire down through the dissection distally. We were able to balloon this with a 3.0 x 15 mm balloon; however, distal to the initial dissection appeared to be a wire dissection unable to deploy stent distally with loss of flow distal to the first dissection. Change wires and guide catheters still unable to keep track distally. Shots were taken of the left collateral formation to the right and this was confirmed; at this point in time given stable pressures, heart rate and no chest pain, etc. Further attempts at stenting and other interventions were stopped. Sheath closed with ExoSeal device. TRANSINT:[id number] Voice Confirmation ID: [id number] DOCUMENT ID: [id number] LM PRICE MD at 1552 CC: [id number] DICTATION DATE: 03/27/20 120 BUILDING CONSTRUCTION SUPERVISOR: 03/27/202025 DIS IN 03/27/20 [facility] [address] [place] [address]
== END 2020-03-27 17:11 | disposition home or self-care (01) | DRG 249 ==
LOC: D.ER 04:41 → D.CLR 06:16 → D.EDHOLD 06:16 → D.M2 06:16 → D.CLR 12:04 → D.M2 16:17
PROVIDERS: Emergency Medicine; Family Medicine; Internal Medicine Interventional Cardiology; ADMIT Family Medicine; ATTEND Family Medicine
PROC: 4A023N7 Measurement of Cardiac Sampling and Pressure, Left Heart, Percutaneous Approach (ICD-10-PCS; 2020-03-24)
PROC: B2111ZZ Fluoroscopy of Multiple Coronary Arteries using Low Osmolar Contrast (ICD-10-PCS; 2020-03-24)
PROC: B2151ZZ Fluoroscopy of Left Heart using Low Osmolar Contrast (ICD-10-PCS; 2020-03-24)
PROC: 02703DZ Dilation of Coronary Artery, One Artery with Intraluminal Device, Percutaneous Approach (ICD-10-PCS; principal; 2020-03-24 11:00)
PROC: 02703ZZ Dilation of Coronary Artery, One Artery, Percutaneous Approach (ICD-10-PCS; 2020-03-27)
DX: I21.4 Non-ST elevation (NSTEMI) myocardial infarction (principal); I24.9 Acute ischemic heart disease, unspecified; I10 Essential (primary) hypertension; I25.110 Atherosclerotic heart disease of native coronary artery with unstable angina pectoris; E11.65 Type 2 diabetes mellitus with hyperglycemia; E11.40 Type 2 diabetes mellitus with diabetic neuropathy, unspecified